=== PATIENT | male | born 1950 | race Two or more races ===

== ENCOUNTER 2016-10-21 12:23 | Day surgery (SDC) | payer MEDICARE ==
[~2016-10-21 12:23] MED LIST: Buffered Lidocaine 0.9% SYRIN* 5 ML/SYR SYRINGE INTRADERM ONE; Famotidine IV* 10 MG/ML 2 ML (20 mg) IV ONE; Metoclopramide TAB* 10 MG PO ONE
[2016-10-21] MEDS ORDERED: Metoclopramide TAB* 10 MG ONE ×2 (12:38→13:09)
[2016-10-21] MEDS ORDERED: ceFAZolin 2 GM PREMIX(*) 0 GM/0 ML BAG IVPB ONE (12:38)
[2016-10-21] MEDS ORDERED: Ketorolac INJ* 30 MG/ML 1 ML VIAL ONE ×2 (12:38→13:22)
[2016-10-21] MEDS ORDERED: Famotidine IV* 10 MG/ML 2 ML (20 mg) ONE (12:38)
[2016-10-21] MEDS ORDERED: Buffered Lidocaine 0.9% SYRIN* 5 ML/SYR SYRINGE ONE (12:39)
[2016-10-21] MEDS ORDERED: fentaNYL* 50 MCG/ML 2 ML VIAL (100 MCG VIAL) ONE (13:22)
[2016-10-21] MEDS ORDERED: Midazolam* 1 MG/ML 5 ML VIAL (5 MG) ONE (13:22)
[2016-10-21] MEDS ORDERED: Ondansetron INJ* 2 MG/ML VIAL ONE (13:22)
[2016-10-21] MEDS ORDERED: KETAMINE HCL* 50 MG/ML 10 ML VIAL ONE (13:22)
[2016-10-21] MEDS ORDERED: Lidocaine 2% PF * 5 ML VIAL ONE (13:22)
[2016-10-21] MEDS ORDERED: Dexamethasone IV* 4 MG/ML 1 ML (4 MG) ONE (13:22)
[2016-10-21] MEDS ORDERED: Propofol* 10 MG/ML 20 ML BTL IV PUSH ONE (13:22)
[2016-10-21] MEDS ORDERED: fentaNYL* 50 MCG/ML 2 ML VIAL (100 MCG VIAL) IV PRN (13:56)
[2016-10-21] MEDS ORDERED: oxyCODONE/Acetamin 5/325 MG* TAB PO PRN (13:56)
[2016-10-21] MEDS ORDERED: Ondansetron INJ* 2 MG/ML VIAL IV PRN (13:56)
[2016-10-21] MEDS ORDERED: Bupivacaine 0.5% W/EPI SDV* 10 ML VIAL INJ ONE (13:59)
[2016-10-21] MEDS ORDERED: Lidocaine 1% INJ* 10 MG/ML 30 ML SDV ONE (13:59)
[2016-10-21] MEDS ORDERED: Midazolam* 1 MG/ML 2 ML VIAL (2 MG) ONE (14:09)
[2016-10-21 15:20] VITALS: BP 136/90
--- NOTE | 2016-10-22 11:22 | OP ---
CC: Dr. Wolf, Dr. Yin OPERATIVE REPORT: DATE OF OPERATION: 10/21/16 DATE OF : 46 SURGEON: Dr. Yin. SCRUM PROJECT MANAGER: None. ANESTHESIOLOGIST: Dr. Chong. ANESTHESIA: LMAC anesthesia. PRE-OP DIAGNOSIS: Hemorrhoids. POST-OP DIAGNOSIS: Hemorrhoids. OPERATIVE PROCEDURE: Anoscopy with hemorrhoid banding. DESCRIPTION OF PROCEDURE: The patient was supine on the operating room table, after adequate intrav enous sedation, compression stocking, and Claudy Hugger warmer, he was placed in the prone Amrit-knife position. The buttocks are taped apart and anoscopy is carried out. He has hemorrhoids bilaterally and a total of 4 sites are banded. He tolerated this well. A little local anesthetic was administ ered. He was then brought to recovery in good condition. There were no complications. No drains. No pathologic specimens. Sponge and instruments counts correct. Estimated blood loss less than 10 mL. [id number]/[facility] #: [id number]
== END 2016-10-21 15:12 | disposition home or self-care (01) ==
LOC: OR 12:23
PROVIDERS: ATTEND Surgery
DX: K64.1 Second degree hemorrhoids (principal)
CPT/HCPCS: A9270-GY; J0690; J1100; J1885; J2001; J2250; J2405; J2704; J3010

== ENCOUNTER 2023-08-23 16:05 | Inpatient (IN) ==
[2023-08-23 21:04] LABS: Urine Appearance Clear; Urine Bilirubin Negative (Negative); Urine Blood Negative (Negative); Urine Color Light-Yellow; Urine Glucose Negative (Negative); Urine Ketones Trace (Negative); Urine Nitrite Negative (Negative); Urine Protein Negative (Negative); Urine Urobilinogen Negative (Negative)
[2023-08-23 21:13] LABS: Albumin 3.5 g/dL (3.2-5.2); Albumin/Globulin Ratio 1.4 (1-3); Calcium 8.8 mg/dL (8.6-10.3); Creatinine, Serum 0.6 mg/dL (0.67-1.17); Globulin 2.5 g/dL (2-4); Potassium 3.6 mmol/L (3.5-5.0); Total Bilirubin 0.5 mg/dL (0.2-1.0); eGFR CKD-EPI 101.3 (>60)
[2023-08-23 21:27] LABS: ABS Basophils 0.1 10^3/uL (0.0-0.1); ABS Eosinophils 0.1 10^3/uL (0.0-0.5); ABS Lymphocytes 1.5 10^3/uL (1.0-4.8); ABS Monocytes 0.5 10^3/uL (0.0-1.1); ABS Neutrophils 6.8 10^3/uL (1.5-7.6); Eosinophil % 1.2 %; Hematocrit 39.2 % (38-53); Hemoglobin 14.1 g/dL (13.2-16.3); Lymphocyte % 16.9 %; Mean Corpuscular Hemoglobin 33.2 pg (27-33); Mean Corpuscular Hgb Conc 35.9 g/dL (31-36); Mean Corpuscular Volume 92.4 fL (80-97); Mean Platelet Volume 6.8 fL (7.5-11.2); Platelet Count 324 10^3/uL (150-450); Red Blood Count 4.24 10^6/uL (4.06-5.63); Red Cell Distribution Width 12.4 % (12-17)
[2023-08-23] MEDS: Acetaminophen IV 1 GM/100ML 1,000 MG/100 ML BAG IV ONE (22:41)
[2023-08-23] MEDS: NS 0.9% 1000 ml BAG 1,000 ML IV ONE (22:41)
[2023-08-24] MEDS: Morphine 4 MG/ML VIAL (1 ml) IV ONE (05:34)
[2023-08-24] MEDS: Iohexol 350 (CONTRAST) 500 ML MDV IV ONE (05:51)
[2023-08-24] MEDS: Acetaminophen IV 1 GM/100ML 1,000 MG/100 ML BAG IV ONE (06:09)
[2023-08-24] MEDS: Polyethylene Glycol 3350 17 GM PACKET PO ONE (08:40)
[2023-08-24] MEDS: Cholecalciferol (VIT D3) 1,000 unit TAB PO SCH (16:04)
[2023-08-24] MEDS: Lactated Ringers 1000 ml BAG 1,000 ML IV SCH (16:09)
[2023-08-24 17:05] LABS: TSH Ultra Thyroid Stim Horm 1.88 mcIU/mL (0.34-5.60)
[2023-08-24 18:09] LABS: Osmolality Serum 260 mOsm/kg (275-295)
[2023-08-24] MEDS: Enoxaparin 40 MG/0.4 ML SYR SUBCUT SCH (20:37)
[2023-08-24] MEDS: Polyethylene Glycol 3350 17 GM PACKET PO SCH (20:38)
[2023-08-24] MEDS: Senna TAB 8.6 mg TAB PO SCH (20:38)
[2023-08-24 21:29] LABS: Urine Osmo 392 mOsm/kg (150-1150)
[2023-08-24 21:59] LABS: Calcium 7.6 mg/dL (8.6-10.3); Creatinine, Serum 0.5 mg/dL (0.67-1.17); Magnesium 1.3 mg/dL (1.9-2.7); Potassium 3.6 mmol/L (3.5-5.0)
[2023-08-24] MEDS: Magnesium Sulf 4 GM/100 ML IV 4,000 MG/100 ML BAG IVPB ONE (22:58)
[2023-08-25 06:55] LABS: ABS Basophils 0.1 10^3/uL (0.0-0.1); ABS Eosinophils 0.1 10^3/uL (0.0-0.5); ABS Lymphocytes 1.5 10^3/uL (1.0-4.8); ABS Monocytes 0.5 10^3/uL (0.0-1.1); ABS Neutrophils 6.9 10^3/uL (1.5-7.6); ABS Nucleated RBC 0.01 10^3/ul; Eosinophil % 1.5 %; Hematocrit 37.9 % (38-53); Hemoglobin 13.5 g/dL (13.2-16.3); Lymphocyte % 16.4 %; Mean Corpuscular Hemoglobin 32.9 pg (27-33); Mean Corpuscular Hgb Conc 35.6 g/dL (31-36); Mean Corpuscular Volume 92.5 fL (80-97); Mean Platelet Volume 6.6 fL (7.5-11.2); Nucleated Red Blood Cells % 0.1 %/100WBC (0.0-0.8); Platelet Count 330 10^3/uL (150-450); Red Cell Distribution Width 12.6 % (12-17); White Blood Count 9.2 10^3/uL (3.6-10.2)
[2023-08-25 07:13] LABS: Albumin 3.4 g/dL (3.2-5.2); Albumin/Globulin Ratio 1.4 (1-3); Calcium 8.3 mg/dL (8.6-10.3); Creatinine, Serum 0.62 mg/dL (0.67-1.17); Globulin 2.5 g/dL (2-4); Magnesium 2.2 mg/dL (1.9-2.7); Potassium 3.5 mmol/L (3.5-5.0); Total Bilirubin 0.5 mg/dL (0.2-1.0); Total Protein 5.9 g/dL (6.4-8.9); eGFR CKD-EPI 100.3 (>60)
[2023-08-25] MEDS: Potassium Chlor 20 meq TAB.ER PO ONE (08:16)
[2023-08-25] MEDS: Mineral Oil ENEMA 118 ML/BOTTLE BOTTLE PR ONE (13:28)
[2023-08-25] MEDS: SMOG Enema (MgOH-NS-Gly-MinO) 330 ML ENEMA PR ONE (20:55)
[2023-08-25] MEDS: Polyethylene Glycol 3350 17 GM PACKET PO SCH (22:47)
[2023-08-25] MEDS: Senna TAB 8.6 mg TAB PO SCH (22:47)
[2023-08-26] MEDS: Morphine 2 MG/ML SYRINGE IV ONE (03:21)
[2023-08-26 06:40] LABS: Hematocrit 39.4 % (38-53); Hemoglobin 13.7 g/dL (13.2-16.3); Mean Corpuscular Hemoglobin 32.1 pg (27-33); Mean Corpuscular Hgb Conc 34.9 g/dL (31-36); Mean Corpuscular Volume 92.1 fL (80-97); Mean Platelet Volume 6.3 fL (7.5-11.2); Platelet Count 312 10^3/uL (150-450); Red Blood Count 4.28 10^6/uL (4.06-5.63); Red Cell Distribution Width 12.8 % (12-17); White Blood Count 11.6 10^3/uL (3.6-10.2)
[2023-08-26 07:08] LABS: Calcium 8.4 mg/dL (8.6-10.3); Creatinine, Serum 0.56 mg/dL (0.67-1.17); Magnesium 1.8 mg/dL (1.9-2.7); Potassium 3.6 mmol/L (3.5-5.0); eGFR CKD-EPI 103.4 (>60)
[2023-08-26] MEDS: SMOG Enema (MgOH-NS-Gly-MinO) 330 ML ENEMA PR ONE (08:23)
[2023-08-26] MEDS: Magnesium Hydroxide LIQ 30 ML UDC PO SCH ×2 (09:30→20:56)
[2023-08-26] MEDS: Magnesium Sulfate 2 gm BAG 2 GM/50 ML BAG IVPB ONE (09:32)
[2023-08-26] MEDS: Potassium Chlor 20 meq TAB.ER PO ONE (09:32)
[2023-08-26 10:20] LABS: Urine Appearance Clear; Urine Bilirubin Negative (Negative); Urine Blood Trace (Negative); Urine Color Light-Yellow; Urine Glucose Negative (Negative); Urine Ketones 2+ (Negative); Urine Nitrite Negative (Negative); Urine Protein Negative (Negative); Urine Specific Gravity 1.014 (1.002-1.030); Urine Urobilinogen Negative (Negative); Urine pH 6.5 (5.0-8.0)
[2023-08-26] MEDS: Senna TAB 8.6 mg TAB PO ONE (11:55)
[2023-08-26] MEDS: Polyethylene Glycol 3350 17 GM PACKET PO SCH (20:56)
[2023-08-26] MEDS: Senna TAB 8.6 mg TAB PO SCH (20:57)
[2023-08-26] MEDS ORDERED: Senna TAB 8.6 mg TAB PO SCH (21:00)
[2023-08-27 06:25] LABS: ABS Basophils 0.1 10^3/uL (0.0-0.1); ABS Eosinophils 0.3 10^3/uL (0.0-0.5); ABS Lymphocytes 1.5 10^3/uL (1.0-4.8); ABS Monocytes 0.6 10^3/uL (0.0-1.1); ABS Neutrophils 7.7 10^3/uL (1.5-7.6); ABS Nucleated RBC 0.05 10^3/ul; Eosinophil % 2.5 %; Hematocrit 37.6 % (38-53); Hemoglobin 13.3 g/dL (13.2-16.3); Lymphocyte % 14.5 %; Mean Corpuscular Hemoglobin 32.8 pg (27-33); Mean Corpuscular Hgb Conc 35.5 g/dL (31-36); Mean Corpuscular Volume 92.4 fL (80-97); Mean Platelet Volume 6.6 fL (7.5-11.2); Nucleated Red Blood Cells % 0.5 %/100WBC (0.0-0.8); Platelet Count 286 10^3/uL (150-450); Red Blood Count 4.06 10^6/uL (4.06-5.63); Red Cell Distribution Width 12.9 % (12-17); White Blood Count 10.2 10^3/uL (3.6-10.2)
[2023-08-27 06:42] LABS: Calcium 8.2 mg/dL (8.6-10.3); Creatinine, Serum 0.63 mg/dL (0.67-1.17); Magnesium 2.1 mg/dL (1.9-2.7); Potassium 3.7 mmol/L (3.5-5.0); eGFR CKD-EPI 99.8 (>60)
[2023-08-27] MEDS: Potassium Chlor 20 meq TAB.ER PO ONE (17:12)
[2023-08-28 08:47] LABS: Calcium 8.5 mg/dL (8.6-10.3); Creatinine, Serum 0.61 mg/dL (0.67-1.17); Potassium 4.2 mmol/L (3.5-5.0); eGFR CKD-EPI 100.8 (>60)
[2023-08-29 05:19] LABS: ABS Basophils 0.1 10^3/uL (0.0-0.1); ABS Eosinophils 0.3 10^3/uL (0.0-0.5); ABS Lymphocytes 1.2 10^3/uL (1.0-4.8); ABS Monocytes 0.6 10^3/uL (0.0-1.1); ABS Neutrophils 5.3 10^3/uL (1.5-7.6); ABS Nucleated RBC 0.01 10^3/ul; Eosinophil % 3.9 %; Hemoglobin 13.1 g/dL (13.2-16.3); Lymphocyte % 16.3 %; Mean Corpuscular Hemoglobin 32.5 pg (27-33); Mean Corpuscular Hgb Conc 35.4 g/dL (31-36); Mean Corpuscular Volume 91.9 fL (80-97); Mean Platelet Volume 6.5 fL (7.5-11.2); Nucleated Red Blood Cells % 0.1 %/100WBC (0.0-0.8); Platelet Count 293 10^3/uL (150-450); Red Blood Count 4.03 10^6/uL (4.06-5.63); Red Cell Distribution Width 12.5 % (12-17); White Blood Count 7.5 10^3/uL (3.6-10.2)
[2023-08-29 06:08] LABS: Calcium 8.3 mg/dL (8.6-10.3); Creatinine, Serum 0.51 mg/dL (0.67-1.17); Magnesium 1.7 mg/dL (1.9-2.7); Potassium 3.9 mmol/L (3.5-5.0); eGFR CKD-EPI 106.4 (>60)
[2023-08-29 10:39] VITALS: BP 117/71
[2023-08-29 13:13] LABS: Osmolality Serum 263 mOsm/kg (275-295)
[2023-08-29 13:43] LABS: Urine Osmo 362 mOsm/kg (150-1150)
== END 2023-08-29 14:45 | disposition home health service (06) | DRG 312 ==
LOC: ED 16:05 → EDHOLD 16:05 → MEDTELE 08-24 21:25 → SUATTDRO 08-26 14:04
PROVIDERS: ADMIT Student in an Organized Health Care Education/Training Program; ATTEND Family Medicine

== ENCOUNTER 2023-10-24 06:28 | Observation (INO) ==
[~2023-10-24 06:28] MED LIST changes: -Buffered Lidocaine 0.9% SYRIN* 5 ML/SYR SYRINGE INTRADERM ONE; -Famotidine IV* 10 MG/ML 2 ML (20 mg) IV ONE; +Metoclopramide 5 MG/ML VIAL (10 mg) IV PRN; -Metoclopramide TAB* 10 MG PO ONE; +NS 0.45% 1000 ml BAG 1,000 ML IV SCH; +Naloxone 0.4 mg VIAL 0.4 mg/ml 1 ml VIAL IV PRN; +Ondansetron 4 mg VIAL 2 MG/ML 2 ml VIAL IV PRN; +fentaNYL 100 mcg/2 ml 50 MCG/ML VIAL IV PRN
[2023-10-24] MEDS: Scopolamine 1 mg/72hr PATCH TRANSDERM ONE (06:49)
[2023-10-24] MEDS: Lactated Ringers 1000 ml BAG 1,000 ML IV SCH (07:03)
[2023-10-24] MEDS: Buffered Lidocaine 1% SYRIN 1 ml INTRADERM ONE (07:03)
[2023-10-24] MEDS ORDERED: Ondansetron 4 mg VIAL 2 MG/ML 2 ml VIAL IV PRN (07:22)
[2023-10-24 07:46] LABS: Rapid COVID-19 Molecular Undetected (Undetected)
[2023-10-24] MEDS ORDERED: fentaNYL 100 mcg/2 ml 50 MCG/ML VIAL ONE (07:53)
[2023-10-24] MEDS ORDERED: Propofol 10 MG/ML 20 ML BTL ONE (07:53)
[2023-10-24] MEDS ORDERED: Midazolam 2 mg/2 ml VIAL 1 mg/ml 2 ml VIAL (2 mg) ONE (07:54)
[2023-10-24] MEDS ORDERED: Lidocaine 2% PF 5 ML VIAL ONE (07:58)
[2023-10-24] MEDS ORDERED: Furosemide 20 mg/2 ml IV VIAL ONE (09:41)
[2023-10-24] MEDS: Acetaminophen IV 1 GM/100ML 1,000 MG/100 ML BAG IV ONE (12:28)
[2023-10-24] MEDS: NS 0.9% 1000 ml BAG 1,000 ML IV SCH (12:28)
[2023-10-24] MEDS: Ampicillin ADVAN 2 GM in NS 0.9% 100 ML 100 ML IVPB ONE (12:29)
[2023-10-24] MEDS: Gentamicin ADULT 375 MG in NS 0.9% 100 ml BAG 100 ML IVPB ONE (12:32)
[2023-10-24] MEDS: Magnesium Hydroxide LIQ 30 ML UDC PO SCH (12:33)
[2023-10-24] MEDS: Neomycin/Polym/Bacit TOP OINT 15 GM TOPICAL SCH (12:34)
[2023-10-24] MEDS: CMCS: Alfuzosin ER 10 mg TAB.ER (NF) 10 MG TAB.ER PO SCH (18:43)
[2023-10-25 05:41] VITALS: BP 144/88
== END 2023-10-25 10:30 | disposition home or self-care (01) ==
LOC: SSU 06:28 → OR 06:28
PROVIDERS: ADMIT Urology; ATTEND Urology